=== PATIENT | female | born 1980 | race Caucasian/White ===

== ENCOUNTER 2017-07-21 07:30 | Inpatient (IN) | payer OTHER ==
--- NOTE | 2017-07-20 14:56 | History and Physical Report ---
History of Present Illness Date of examination: 07/19/17 Date of admission: 07/21/2017 Chief complaint: here for repeat c/s with TL History of present illness: Pt presents for repeat c/s with TL. Pt has been complicated by h/o PTD for which she is s/p Makeena injections; GDM for which she take glyburide; and CHTN for which she takes Labetalol 200mg bid. She is also AMA. EDC Confirmation: 08/10/2017 Gestational Age: 6 5/7 weeks Past History : 3 Past Medical History: morbid ovesity fatty liver gall stones right sided mass - removed Hypertension -no meds at this time Past Surgical History: explortion of the left groin with removal of endometriosis 2014 Past Medical History Surgery (Non-lsw): explortion of the left groin with removal of endometriosis 2014 Abnormal PAP: negative BG Exposure: negative Infertility: negative Uterine Anomaly: negative Uterine Surgery (not C/S): negative Other Gynecologic Problems: negative Social Hx: Patient is Smoking History: Patient has never smoked. Infection History Hx of STD: none HIV Risk Eval: low risk Hepatitis B Risk Eval: low risk Personal hx. of genital herpes: no Partner hx. of genital herpes: no Rash, Viral, or Febrile illness since last LMP? no Varicella/Chicken Pox Status: Previous Disease TB Risk: no Genetic History ADVANCED MATERNAL AGE Congenital Heart Defect: Mom: no Dad: no Farrah Disease: Mom: no Dad: no Thalassemia Mom: no Dad: no Neural Tube Defect Mom: no Dad: no Down's Syndrome Mom: no Dad: no Guillermo-Sachs Mom: no Dad: no Sickle Cell Disease/Trait Mom: no Dad: no Hemophilia Mom: no Dad: no Muscular Dystrophy Mom: no Dad: no Cystic Fibrosis Mom: no Dad: no [place] Chorea Mom: no Dad: no Mental Retardation Mom: no Dad: no Fragile X Mom: no Dad: no Other Genetic/Chromosomal Disorder Mom: no Dad: no Child w/other defect Mom: no Dad: no Enviromental Exposures Xray Exposure: no Medication, drug, or alcohol use since LMP: no Chemical/Other Exposure: no Exposure to Cat Liter: no Hx of Parvovirus (Fifth Disease): no Occupational Exposure to Children: none Active Medications (reviewed today): ERGOCALCIFEROL 37898 UNIT ORAL CAPS (ERGOCALCIFEROL) 1 CAP WEEKLY FOR 8 WEEKS. 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 - Obstetrical History Expected Date of Delivery: 08/10/17 Actual Gestation: 37 Week(s) 1 Day(s) : 3 Number of Pregnancies: 1 Spontaneous Abortions: 1 Medications and Allergies Allergies Allergy/AdvReac Type Severity Reaction Status Date / Time No Known Allergies Allergy Verified 01/18/15 15:03 Home Medications Medication Instructions Recorded Confirmed Last Taken Type Docusate Sodium [Colace] 100 mg PO BID PRN #30 capsule 07/21/17 Unknown Rx Ferrous Sulfate [Feosol 325 MG tab] 325 mg PO QDAY #30 tablet 07/21/17 Unknown Rx Ibuprofen [Motrin 800 MG tab] 800 mg PO Q8HR PRN #30 tablet 07/21/17 Unknown Rx Sulfamethoxazole/Trimethoprim 1 each PO BID #14 tablet 07/21/17 Unknown Rx [Bactrim DS TAB] oxyCODONE /ACETAMINOPHEN [Percocet 1 tab PO Q4HR #30 tab 07/21/17 Unknown Rx 5/325] Active Meds: Active Medications Citric Acid/Sodium Citrate (Bicitra) 30 ml PO ONCE ONE Stop: 07/21/17 09:01 Famotidine (Pepcid) 20 mg IV ONCE ONE Stop: 07/21/17 09:01 Cefazolin Sodium (Ancef/Sterile Water 2 Gm/20 Ml) 2 gm in 20 mls @ 80 mls/hr IV PREOP NR PRN Reason: Protocol Lactated Ringer's (Lactated Ringers) 1,000 mls @ 2,250 mls/hr IV PREOP GUICHO Stop: 07/21/17 15:27 Oxytocin/Sodium Chloride (Pitocin/Ns 20 Unit/1000ml Drip) 20 units in 1,000 mls @ 0 mls/hr IV TITR GUICHO PRN Reason: As Directed Metoclopramide HCl (Reglan) 10 mg IV ONCE ONE Stop: 07/21/17 09:01 Review of Systems All systems: negative - Physical Exam Cardiovascular: Normal S1, Normal S2 Lungs: Positive: Clear to auscultation, Normal air movement Abdomen: Positive: normal appearance, soft. Negative: distention, tenderness, guarding Genitourinary (Female): Positive: normal external genitalia, normal perenium Extremities: Positive: normal Deep Tendon Reflex Grade: Normal +2 - Obstetrical FHR: auscultation normal Results Result Diagrams: 07/21/17 10:35 All other labs normal. Assessment and Plan - Patient Problems (1) 37 weeks gestation of Current Visit: Yes Status: Acute (2) Advanced maternal age (AMA) in Current Visit: Yes Status: Acute (3) Gestational diabetes Current Visit: Yes Status: Acute Qualifiers: Gestational diabetes mellitus control: G Trimester: T (4) Obesity Current Visit: Yes Status: Acute Qualifiers: Obesity type: O Obesity classification: O Serious obesity comorbidity presence: S Body mass index: B (5) Hypertension Current Visit: Yes Status: Acute Qualifiers: Hypertension type: H (6) Previous delivery affecting Current Visit: Yes Status: Acute Plan to address problem: -admit prepare for c/s (7) Sterilization Current Visit: Yes Status: Acute Plan to address problem: -consents signed -all risk, benefits and alternatives were d/w pt and questions were addressed and answered.
[~2017-07-21 07:30] MED LIST: LACTATED RINGERS 1,000 ML IV SCH; PEPCID IV SCH; REGLAN IV SCH
[2017-07-21] MEDS ORDERED: BICITRA PO SCH (09:00)
[2017-07-21] MEDS ORDERED: PITOCin/NS 20 UNIT/1000ML DRIP 20 UNITS/1,000 ML BAG IV SCH (09:00)
[2017-07-21] MEDS ORDERED: ANCEF/STERILE WATER 2 GM/20 ML 2 GM/20 ML SYRINGE IV NR (09:00)
--- NOTE | 2017-07-21 10:34 | Anesthesia Consultation ---
Anesthesia Consult and Med Hx Date of service: 07/21/17 - Airway Anesthetic Teeth Evaluation: Good ROM Head & Neck: Adequate Mental/Hyoid Distance: Adequate Mallampati Class: Class III Intubation Access Assessment: Possibly Difficult - Pre-Operative Health Status ASA Pre-Surgery Classification: ASA3 Proposed Anesthetic Plan: Epidural - Pulmonary Hx Smoking: No Hx Sleep Apnea: No (YANI PRE SCREEN HIGH RISK) - Cardiovascular System Hx Hypertension: Yes (X 5 YRS- NO MEDS AT PRESENT) - Gastrointestinal Hx Gastroesophageal Reflux Disease: No - Endocrine Hx Non-Insulin Dependent Diabetes: Yes (gestational diabetes) - Hematic Hx Anemia: Yes (WITH PREG.) - Other Systems Hx Cancer: No Hx Obesity: Yes (BMI 52)
--- NOTE | 2017-07-21 10:35 | Anesthesia Day of Surgery ---
Anesthesia Day of Surgery - Day of Surgery Patient Examined: Yes Patient H&P Reviewed: Yes Patient is NPO: Yes Beta Blockers: Yes
[2017-07-21] MEDS ORDERED: DILAUDID IV PRN (11:00)
[2017-07-21] MEDS ORDERED: NARCAN 0.4 MG/1 ML IV PRN (11:00)
[2017-07-21] MEDS ORDERED: TORADOL IV PRN (11:00)
[2017-07-21] MEDS ORDERED: ZOFRAN IV PRN (11:00)
[2017-07-21] MEDS ORDERED: SODIUM CHLORIDE FLUSH SYRINGE 10 ML IV PRN (11:00)
[2017-07-21] MEDS ORDERED: BENADRYL IV PRN (11:00)
[2017-07-21 11:14] LABS: Basophils % (Auto) 0.1 % (0.0-1.8); Hematocrit 36.7 % (30.3-42.9); Mean Corpuscular HGB Conc 33 % (30-34); Mean Corpuscular Hemoglobin 29 pg (28-32); Mean Corpuscular Volume 89 fl (79-97); Platelet Count 256 K/mm3 (140-440); Red Cell Distribution Width 15.4 % (13.2-15.2)
--- NOTE | 2017-07-21 11:15 | Post Anesthesia Evaluation ---
- Post Anesthesia Evaluation Patient Participated: Yes Airway Patent: Yes Stable Respiratory Function: Yes Nausea/Vomiting: No Temp > 96.8F: Yes Pain Manageable: Yes Adequeate Hydration: Yes Anesthesia Complications: No Block Receding Appropriately: Not Applicable Patient on Ventilator: No
[2017-07-21] MEDS ORDERED: WATER FOR IRRIG STERILE IR ONE (11:40)
[2017-07-21] MEDS ORDERED: NACL 0.9% IR ONE (11:40)
[2017-07-21] MEDS ORDERED: MORPHINE ONE (11:44)
--- NOTE | 2017-07-21 13:44 | Operative Report ---
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 2 oz. Grossly normal fallopian tubes and ovaries bilaterally Intra-abdominal mesh on the right side between the layers of the fascia. This mesh was held in place with a suture and with some type of surgical screws that were then placed. The mesh had to be transected in order to allow opening of the abdominal cavity in order to deliver the baby. Indications: Patient presents for repeat section at 37 weeks due to previous classical section. Patient also desired permanent sterilization. All risk benefits and alternatives were discussed with the patient. Consents are signed and placed on the chart. Procedure: Patient was taking to the operating room. Patient was then prepped and draped in sterile fashion after anesthesia was found to be adequate. A low transverse skin incision was made with the scalpel through previous incisional scar and carried down to the underlying layer of fascia with the Bovie. The fascia was then incised in the midline and this incision was extended bilaterally with the Bovie. On the right side as mentioned in the findings there was evidence of some type of repair that had been done and the intra- abdominal fascia. This area included approximately 10 cm length of mesh with suture as well as surgical screws that had been placed to hold the suture in place. This area was transected and as much of the mesh was removed as possible in order to allow exposure of the anterior rectus muscles and also to allow a big enough opening to allow delivery of the head. The surgical screws that were released at the time of cutting the mesh and the tissue were also removed from the abdomen there were approximately 3 of these screws that were removed the remaining screws remained in placed and were not removed at this time as they were deeply embedded in the tissue. Care was taken to examine the anterior rectus to be sure that there were no other screws that were present. The superior aspect of the fascia was grasped with Ann clamps tented upward and dissected off of the anterior rectus muscles with the scalpel. In similar fashion the inferior aspect of the fascia was grasped with Ann clamps tented upward and dissected off of the anterior rectus muscles. The rectus muscles were then bluntly divided in the midline. The peritoneum was identified and entered into sharply. The large Braden retractor was placed A lower transverse uterine incision was made with the scalpel and extended bilaterally with the bandage scissors. Artificial rupture of membranes was performed yielding clear amniotic fluid. A Kiwi vacuum was applied with 1 pull to allow delivery of the head. The 's head was then delivered atraumatically. The anterior shoulder and rest of infant delivered without difficulty. A nuchal cord 1 was present and was easily reduced. The umbilical cord was clamped x2. The cord was cut. The infant was then placed in sterile bassinet. The cord blood was not collected. The placenta was manually extracted in its entirety. The uterus was exteriorized and cleared of all clots and debris. The uterine incision was closed using 0 Vicryl in a running locking fashion. [id number]-[id number] sutures were used along the incision line to secure excellent hemostasis. Attention was then turned to the fallopian tubes. The LigaSure device was used to ligate and transect the fallopian tubes in their entirety bilaterally. Excellent hemostasis was noted. The posterior cul-de-sac was copiously irrigated. The uterus was returned to the abdomen. The Braden retractor was removed from the abdomen. The gutters were also irrigated. The anterior rectus muscles were reapproximated using 3-0 Vicryl. The anterior rectus fascia was reapproximated using 0 Vicryl in a running fashion. On the right side the anterior rectus fascia was divided into 2 layers. The first layer was repaired with the first running 0 Vicryl stitch. The second layer was then sewn over the first layer in order to completely close the anterior rectus fascia on the right side. The subcuticular fat was reapproximated using 2-0 Vicryl in a running fashion. The skin was reapproximated with 4-0 Monocryl in a subcutaneous tikka stitch. The patient tolerated the procedure well. Sponge lap and needle counts were all correct x3. Patient was taken to the recovery room awake and in stable condition.
[2017-07-21] MEDS ORDERED: LANSINOH TP PRN (13:47)
[2017-07-21] MEDS ORDERED: TUCKS PAD TP PRN (13:47)
[2017-07-21] MEDS ORDERED: NORCO 5/325 PO PRN (13:47)
[2017-07-21] MEDS: ANCEF/NS 1 GM/50 ML 1 GM/50 ML BAG IV SCH (18:05)
[2017-07-21] MEDS ORDERED: NORMODYNE PO SCH (22:00)
[2017-07-22] MEDS: ANCEF/NS 1 GM/50 ML 1 GM/50 ML BAG IV SCH (01:08)
[2017-07-22] MEDS: NORMODYNE PO SCH ×2 (01:09→10:42)
[2017-07-22 01:54] LABS: Hematocrit 32.7 % (30.3-42.9)
[2017-07-22] MEDS ORDERED: BOOSTRIX IM ONE (06:00)
[2017-07-22] MEDS: MOTRIN PO PRN ×2 (08:40→17:44)
--- NOTE | 2017-07-22 11:52 | Progress Note ---
Assessment and Plan - Patient Problems (1) 37 weeks gestation of Current Visit: Yes Status: Acute (2) Advanced maternal age (AMA) in Current Visit: Yes Status: Acute (3) Gestational diabetes Current Visit: Yes Status: Acute Qualifiers: Gestational diabetes mellitus control: G Trimester: T (4) Obesity Current Visit: Yes Status: Acute Qualifiers: Obesity type: O Obesity classification: O Serious obesity comorbidity presence: S Body mass index: B (5) Hypertension Current Visit: Yes Status: Acute Qualifiers: Hypertension type: H (6) Previous delivery affecting Current Visit: Yes Status: Acute (7) Sterilization Current Visit: Yes Status: Acute Subjective - Subjective Date of service: 07/22/17 Principal diagnosis: POD #1 s/p rpt c/s with BS Interval history: doing well today. Pain is well controlled. Sitting in chair feeding . Patient reports: appetite normal, voiding normally, ambulating normally, no pain well controlled : doing well, nursing well Objective - Vital Signs Latest vital signs: Vital Signs Temp Pulse Resp BP BP Pulse Ox 07/22/17 10:42 87 114/55 07/22/17 08:18 98 F 87 121/77 07/22/17 04:00 98.6 F 71 16 132/78 07/22/17 01:09 84 132/76 07/22/17 00:00 98.6 F 71 16 131/70 07/21/17 20:00 98.6 F 82 16 133/69 07/21/17 16:25 98.4 F 89 19 119/58 07/21/17 15:15 98.6 F 90 20 148/82 07/21/17 13:28 99.3 F 99 H 12 123/69 98 Intake and Output 07/21/17 07/22/17 07/22/17 22:59 06:59 14:59 Intake Total 470 550 Output Total 200 600 Balance 270 -50 Intake: IV 50 ANCEF/NS 1 GM/50 ML 1 gm 50 In 50 ml @ 100 mls/hr IV Q8H GUICHO Rx#:[id number] Oral 120 250 Intake, Free Water 300 300 Output: Urine 200 600 Indwelling Catheter 200 Void 600 Other: Total, Intake Amount 120 250 Total, Output Amount 200 600 # Voids Void 1 - Exam Lungs: Present: Clear to auscultation, Normal air movement Abdomen: Present: normal appearance, soft
[2017-07-22] MEDS: NORCO 5/325 PO PRN (13:09)
[2017-07-23] MEDS: MOTRIN PO PRN ×3 (01:37→18:18)
[2017-07-23] MEDS: NORMODYNE PO SCH ×3 (01:39→23:05)
[2017-07-23] MEDS: NORCO 5/325 PO PRN (10:47)
--- NOTE | 2017-07-23 11:29 | Discharge Summary ---
Providers - Providers Date of Admission: 07/21/17 09:40 Date of discharge: 07/23/17 Attending physician: STEFANIE TORIBIO Primary care physician: STEFANIE TORIBIO Hospitalization Reason for admission: section Delivery: Procedure: section, bilateral tubal ligation Incision: normal, dry, intact Other procedures: none complications: none Discharge diagnosis: IUP at term delivered baby: female Hospital course: Patient was admitted and underwent above procedure without complications. Her post operative course was benign she was afebrile throughout. Patient postoperative day 1 hematocrit was in an acceptable range. Patient had no orthostatic symptoms. Patient was tolerating regular diet and voiding without difficulty at time of discharge. Patient incision was healing well without evidence of infection. Condition at discharge: Good Disposition: DC-01 TO HOME OR SELFCARE Plan - Discharge Medications Prescriptions: Sulfamethoxazole/Trimethoprim [Bactrim DS TAB] 1 each PO BID #14 tablet Docusate Sodium [Colace] 100 mg PO BID PRN #30 capsule PRN Reason: Constipation Ferrous Sulfate [Feosol 325 MG tab] 325 mg PO QDAY #30 tablet Ibuprofen [Motrin 800 MG tab] 800 mg PO Q8HR PRN #30 tablet PRN Reason: Pain oxyCODONE /ACETAMINOPHEN [Percocet 5/325] 1 tab PO Q4HR #30 tab - Provider Discharge Summary Activity: routine, no sex for 6 weeks, no heavy lifting 4 weeks, no strenuous exercise Diet: routine Instructions: routine Additional instructions: [] Smoking cessation referral if applicable(refer to patient education folder for contact #) [] Refer to [facility]'s [facility] Booklet Call your doctor immediately for: * Fever > 100.5 * Heavy vaginal bleeding ( >1 pad per hour) * Severe persistent headache * Shortness of breath * Reddened, hot, painful area to leg or breast * Drainage or odor from incision. * Keep incision clean and dry at all times and follow doctor's instructions regarding bathing/showering - Follow up plan Follow up: STEFANIE TORIBIO MD [Primary Care Provider] - 7 Days
[2017-07-24] MEDS ORDERED: BOOSTRIX IM ONE (06:00)
[2017-07-24] MEDS: MOTRIN PO PRN (08:17)
[2017-07-24] MEDS: NORCO 5/325 PO PRN (08:17)
[2017-07-24] MEDS: NORMODYNE PO SCH (10:49)
[2017-07-24 10:52] VITALS: BP 137/70
== END 2017-07-24 12:30 | disposition home or self-care (01) | DRG 765 ==
LOC: APU 09:40 → OB 15:08
PROVIDERS: ADMIT Obstetrics & Gynecology; ATTEND Obstetrics & Gynecology
PROC: 10D00Z1 Extraction of Products of Conception, Low, Open Approach (ICD-10-PCS; principal; 2017-07-21)
PROC: 0UB70ZZ Excision of Bilateral Fallopian Tubes, Open Approach (ICD-10-PCS; 2017-07-21)
DX: O34.211 Maternal care for low transverse scar from previous cesarean delivery (principal); O10.92 Unspecified pre-existing hypertension complicating childbirth; Z68.43 Body mass index [BMI] 50.0-59.9, adult; O24.429 Gestational diabetes mellitus in childbirth, unspecified control; O69.81X0 Labor and delivery complicated by cord around neck, without compression, not applicable or unspecified; O99.214 Obesity complicating childbirth; O16.4 Unspecified maternal hypertension, complicating childbirth; E66.01 Morbid (severe) obesity due to excess calories; Z30.2 Encounter for sterilization; O09.523 Supervision of elderly multigravida, third trimester; Z3A.37 37 weeks gestation of pregnancy; Z37.0 Single live birth
CPT/HCPCS: 36415; 85014; 85018; 85025; 86850; 86900; 86901; 88302; 88307; 99211; A6250; C9250; G0463; J0690; J1885; J2270; J2405; J2590; J2765; J7120